=== PATIENT | female | born 1960 | race Caucasian/White ===

== ENCOUNTER 2024-02-27 09:47 | Observation (INO) ==
[2024-02-27] MEDS: Ondansetron 4 mg VIAL 2 MG/ML 2 ml VIAL IV ONE (10:35)
[2024-02-27] MEDS: Lactated Ringers 1000 ml BAG 1,000 ML IV ONE ×2 (10:35→18:08)
[2024-02-27 11:08] LABS: Hematocrit 49.7 % (35-45); Hemoglobin 16.8 g/dL (11.5-14.3); Mean Corpuscular Hemoglobin 31.1 pg (27-33); Mean Corpuscular Hgb Conc 33.8 g/dL (31-36); Mean Corpuscular Volume 92.1 fL (80-97); Mean Platelet Volume 9.5 fL (7.5-11.2); Platelet Count 179 10^3/uL (150-450); Red Cell Distribution Width 14.7 % (12-17); White Blood Count 29.5 10^3/uL (3.8-11.8)
[2024-02-27 11:48] LABS: Activated Partial Thrombo Time 31.9 seconds (26.0-38.0); INR 1.35 (0.83-1.13)
[2024-02-27 12:36] LABS: ABS Lymphocytes 0.8 10^3/uL (1.0-4.8); ABS Monocytes 0.7 10^3/uL (0.0-0.9); ABS Neutrophils 27.9 10^3/uL (1.5-7.6); ABS Nucleated RBC 0.02 10^3/ul; Lymphocyte % 2.7 %; Nucleated Red Blood Cells % 0.1 %/100WBC (0.0-0.8)
[2024-02-27 14:07] LABS: Urine Appearance Turbid; Urine Bilirubin Negative (Negative); Urine Blood 2+ (Negative); Urine Color Yellow; Urine Glucose Negative (Negative); Urine Ketones Negative (Negative); Urine Nitrite Negative (Negative); Urine Protein 1+ (>=30 mg/dL) (Negative); Urine Specific Gravity 1.014 (1.002-1.030); Urine Urobilinogen Negative (Negative)
[2024-02-27 14:10] LABS: Urine Bacteria 1+ /HPF (Absent); Urine Red Blood Cell 3+(>10/hpf) /HPF (0-Trace); Urine Squamous Epithelial Cell Present /HPF (Absent); Urine White Blood Cell 3+(>20/hpf) /HPF (0-Trace)
[2024-02-27 15:05] LABS: ALT 15 U/L (7-52); AST 25 U/L (13-39); Albumin 3.5 g/dL (3.2-5.2); Albumin/Globulin Ratio 1.2 (1-3); Alkaline Phosphatase 105 U/L (35-149); Anion Gap 16 mmol/L (2-16); Blood Urea Nitrogen 29 mg/dL (6-24); C Reactive Protein 379.98 mg/L (<8.01); CO2 Carbon Dioxide 26 mmol/L (22-32); Calcium 8.2 mg/dL (8.6-10.3); Chloride 91 mmol/L (101-111); Creatinine, Serum 1.26 mg/dL (0.51-0.95); Glucose 111 mg/dL (70-100); Lipase < 10 U/L (11.0-82.0); Magnesium 1.5 mg/dL (1.9-2.7); Potassium 2.8 mmol/L (3.5-5.0); Sodium 133 mmol/L (135-145); Total Protein 6.5 g/dL (6.4-8.9); eGFR CKD-EPI 47.7 (>60)
[2024-02-27] MEDS: Iodixanol (CONTRAST) 320 MG/ML 100 ML SDV IV ONE (15:35)
[2024-02-27] MEDS: cefTRIAXone 1 gm/50 mL D5W 1 GM/50 ML BAG IV ONE (16:10)
[2024-02-27] MEDS: KCL 10 MEQ/50 ML IVPREMIX 10 MEQ/50 ML BAG IV SCH (16:38)
[2024-02-27] MEDS ORDERED: Ondansetron 4 mg VIAL 2 MG/ML 2 ml VIAL IV PRN (17:21)
[2024-02-27] MEDS ORDERED: HYDROmorphone 1 MG/1 ML SYRINGE IV PRN (17:25)
[2024-02-27] MEDS: HYDROmorphone 1 MG/1 ML SYRINGE IV ONE (17:26)
[2024-02-27] MEDS ORDERED: Potassium Chlor 20 meq TAB.ER PO SCH (18:00)
[2024-02-27] MEDS ORDERED: Zosyn per Pharmacy NOTE FOLLOW UP SCH (18:00)
[2024-02-27] MEDS: Magnesium Sulfate IV 1GM/100ML 1 GM/100 ML BAG IV ONE (18:09)
[2024-02-27] MEDS: Magnesium Sulfate 2 gm BAG 2 GM/50 ML BAG IVPB ONE (18:43)
[2024-02-27] MEDS: Potassium Chlor 20 meq TAB.ER PO ONE ×2 (18:43→21:35)
[2024-02-27] MEDS ORDERED: KCL 20 MEQ/100 ML IVPREMIX 20 MEQ/100 ML BAG IV SCH (19:00)
[2024-02-27] MEDS: Piperacillin/Tazobac 3.375 BAG 3.375 GM/100 ML BAG IV ONE (20:25)
[2024-02-27] MEDS: NS 0.9% 1000 ml BAG 1,000 ML IV SCH (20:39)
[2024-02-27] MEDS: Nystatin TOP POWDER 15 GM BTL TOPICAL SCH (21:33)
[2024-02-27] MEDS: Enoxaparin 40 MG/0.4 ML SYR SUBCUT SCH (21:34)
[2024-02-27] MEDS: KCL 20 MEQ/100 ML IVPREMIX 20 MEQ/100 ML BAG IV ONE (21:36)
[2024-02-28] MEDS: ZOSYN 3.375 GM Q8H per EXTENDED INFUSION IV SCH (01:29)
[2024-02-28 05:57] LABS: Hematocrit 44.5 % (35-45); Hemoglobin 14.9 g/dL (11.5-14.3); Mean Corpuscular Hemoglobin 31.2 pg (27-33); Mean Corpuscular Hgb Conc 33.5 g/dL (31-36); Mean Corpuscular Volume 93.2 fL (80-97); Mean Platelet Volume 9.4 fL (7.5-11.2); Platelet Count 140 10^3/uL (150-450); Red Blood Count 4.78 10^6/uL (3.63-4.92); Red Cell Distribution Width 14.8 % (12-17)
[2024-02-28 06:31] LABS: Creatinine, Serum 1.14 mg/dL (0.51-0.95); Magnesium 2.3 mg/dL (1.9-2.7); Phosphorus 2.7 mg/dL (2.5-5.0); Potassium 3.3 mmol/L (3.5-5.0); eGFR CKD-EPI 53.8 (>60)
[2024-02-28 06:41] LABS: ABS Basophils 0.1 10^3/uL (0.0-0.1); ABS Lymphocytes 0.8 10^3/uL (1.0-4.8); ABS Monocytes 0.7 10^3/uL (0.0-0.9); ABS Neutrophils 19.4 10^3/uL (1.5-7.6); ABS Nucleated RBC 0.01 10^3/ul; Eosinophil % 0.1 %; Lymphocyte % 3.8 %
[2024-02-28] MEDS: Acetaminophen IV 1 GM/100ML 1,000 MG/100 ML BAG IV PRN (06:42)
[2024-02-28] MEDS: KCL 10 MEQ/50 ML IVPREMIX 10 MEQ/50 ML BAG IV ONE (07:17)
[2024-02-28] MEDS: KCL 10 MEQ/50 ML IVPREMIX 10 MEQ/50 ML BAG ONE (07:20)
[2024-02-28] MEDS: Potassium Chlor 20 meq TAB.ER PO SCH (09:09)
[2024-02-29] MEDS: Magnesium Sulfate 2 gm BAG 2 GM/50 ML BAG IVPB ONE (08:00)
[2024-02-29] MEDS: Potassium Chlor 20 meq TAB.ER PO ONE (08:01)
[2024-02-29 08:42] LABS: ABS Lymphocytes 0.8 10^3/uL (1.0-4.8); ABS Monocytes 0.6 10^3/uL (0.0-0.9); ABS Neutrophils 9.9 10^3/uL (1.5-7.6); Eosinophil % 0.4 %; Hematocrit 42.4 % (35-45); Hemoglobin 14.2 g/dL (11.5-14.3); Lymphocyte % 6.9 %; Mean Corpuscular Hemoglobin 31.1 pg (27-33); Mean Corpuscular Hgb Conc 33.6 g/dL (31-36); Mean Corpuscular Volume 92.6 fL (80-97); Mean Platelet Volume 9.1 fL (7.5-11.2); Platelet Count 126 10^3/uL (150-450); Red Blood Count 4.58 10^6/uL (3.63-4.92); Red Cell Distribution Width 14.8 % (12-17); White Blood Count 11.4 10^3/uL (3.8-11.8)
[2024-02-29 09:18] LABS: Calcium 7.8 mg/dL (8.6-10.3); Creatinine, Serum 0.87 mg/dL (0.51-0.95); Magnesium 2.5 mg/dL (1.9-2.7); Potassium 3.3 mmol/L (3.5-5.0); eGFR CKD-EPI 74.4 (>60)
[2024-02-29] MEDS: NS 0.9% 1000 ml BAG 1,000 ML IV SCH (10:06)
[2024-02-29 13:37] VITALS: BP 165/71
== END 2024-02-29 15:15 | disposition home or self-care (01) ==
LOC: EDHOLD 09:47 → ED 09:47 → MED 19:49
PROVIDERS: ADMIT Internal Medicine; ATTEND Internal Medicine